=== PATIENT | female | born 1985 | race Hispanic/Latino ===

== ENCOUNTER 2023-07-11 03:01 | Emergency (ER) | payer OTHER, SELFPAY ==
--- OUTSIDE RECORDS SUMMARY | 2023-07-11 03:06 | XMS REPORT | Continuity of Care Document ---
Author Name Unknown Address [address] [facility] [address] [place] [address] [facility] thconnect Address [address] [facility] [address] [place] [address] Care Team Providers Care Strategic Account Director Name Role Phone Jonathan Drew Primary Care Physician [phone] Lina Chávez Attending Clinician [phone] Doctor Unassigned, [place] Attending Clinician U Lelia Diego MD Attending Clinician [phone] [facility], [facility] Attending Clinician Un available Stefano Kinsey MD Attending Clinician [phone] Jonathan Drew Attending Clinician [phone] JONATHAN SCHWAB Attending Clinician Unavailab KELLY Pisano Attending Clinician Unavailabl e Martin, [facility] Attending Clinician Unavailable Payers Payer Name Policy Type Policy Number Effective Date Expirati on Date Source Problems Condition Name Condition Details Condition Category Status Onset Date Resolution Date Last Treatment Date Treating Clinician Comments Source 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 HPV-, patient sent for colposcop y. [facility] Screening examinatio n for STD (sexually transmitte d disease) Screening examinatio n for STD (sexually transmitte d disease) Disease Active 2019-03 00:00: 00 [facility] Pain pelvic Pain pelvic Disease Active 2019-03 00:00: 00 [facility] History of vaginal surgery History of vaginal surgery Disease Active 2019-03 00:00: 00 [facility] BMI 29.0-29.9, adult BMI 29.0-29.9, adult Disease Active 2019-03 00:00: 00 [facility] No known active problems No known active problems Disease [facility] Allergies, Adverse Reactions, Alerts Allergy Name Allergy Type Status Severity Reaction(s) Onset Date Inactive Date Treating Clinician Comments Source NO KNOWN ALLERGIE S Drug Class Active [facility] Social History Social Habit Start Date Stop Date Quantity Comments Source Exposure to SARS-CoV-2 (event) Not sure [facility] Alcohol intake 2020-01-30 00:00:00 2020-01-30 00:00:00 Current drinker of alcohol (finding) [facility] History SDOH Alcohol Frequency 2019-12-27 00:00:00 2019-12-27 00:00:00 2 [facility] History SDOH Alcohol Std Drinks 2019-12-27 00:00:00 2019-12-27 00:00:00 99 [facility] History SDOH Alcohol Binge 2019-12-27 00:00:00 2019-12-27 00:00:00 99 [facility] Alcohol Comment 2019-12-27 00:00:00 2019-12-27 00:00:00 socially [facility] Tobacco use and exposure 2017-10-14 00:00:00 2017-10-14 00:00:00 Never used [facility] Sex Assigned At 1985 00:00:00 1985 00:00:00 [facility] Smoking Status Start Date Stop Date Source Never smoker [facility] Medications Ordered Medication Name Filled Medication Name Start Date Stop Date Current Medication? Ordering Clinician Indication Dosage Frequency Signature (SIG) Comments Components Source TAKE 1 TABLET DAILY. 2021-03 1- 00:00: 00 No Dose Unknown - 00:00: 00 No Dose Unknown 06-19 00:00: 00 No Dose Unknown 06-19 00:00: 00 No Dose Unknown 06-19 00:00: 00 No Dose Unknown 06-19 00:00: 00 No Dose Unknown 06-19 00:00: 00 No propranolol 10 mg tablet 04-11 00:00: 00 No 1mg Dose Unknown 04-11 00:00: 00 No propranolol 10 mg tablet 04-11 00:00: 00 No 1mg Dose Unknown 04-11 00:00: 00 No levonorgest rel-ethin estradiol (NORDETTE, 28, ORAL) 2019-03 13:43: 57 Yes 1{tbl} Take 1 tablet by mouth. [facility] levonorgest rel-ethin estradiol (NORDETTE, 28, ORAL) 2019-03 08:43: 57 Yes 1{tbl} Take 1 tablet by mouth. [facility] levonorgest rel-ethin estradiol (NORDETTE, 28, ORAL) 10-14 19:55: 05 Yes 1{tbl} Take 1 tablet by mouth. [facility] Vital Signs Vital Name Observation Time Observation Value Comments S ource Systolic blood pressure 2020-01-30 15:18:00 110 mm[Hg] [facility] Diastolic blood pressure 2020-01-30 15:18:00 70 mm[Hg] [facility] Heart rate 2020-01-30 15:18:00 85 /min [facility] Body temperature 2020-01-30 15:18:00 37.06 Karolina [facility] Respiratory rate 2020-01-30 15:18:00 18 /min [facility] Body height 2020-01-30 15:18:00 152.4 cm [facility] Body weight 2020-01-30 15:18:00 67.903 kg [facility] BMI 2020-01-30 15:18:00 29.24 kg/m2 [facility] Systolic blood pressure 2019-12-27 13:24:00 114 mm[Hg] [facility] Diastolic blood pressure 2019-12-27 13:24:00 58 mm[Hg] [facility] Heart rate 2019-12-27 13:24:00 75 /min [facility] 2019-12-27 13:24:00 36.5 Karolina [facility] Respiratory rate 2019-12-27 13:24:00 16 /min [facility] Body height 2019-12-27 13:24:00 152.4 cm [facility] Body weight 2019-12-27 13:24:00 68.357 kg [facility] BMI 2019-12-27 13:24:00 29.43 kg/m2 [facility] BP Systolic 2022-01-19 16:56:00 117 mm[Hg] BP Diastolic 2022-01-19 16:56:00 76 mm[Hg] Weight Measured 2022-01-19 16:56:00 146.80 pounds Height Measured 2022-01-19 16:56:00 60.00 inches Body Temperature 2022-01-19 16:56:00 98.00 degrees Heart Rate 2022-01-19 16:56:00 78.00 /min Respiratory Rate 2022-01-19 16:56:00 18.00 /min BP Systolic 2021-12-31 16:44:00 103 mm[Hg] BP Diastolic 2021-12-31 16:44:00 70 mm[Hg] Weight Measured 2021-12-31 16:44:00 148.00 pounds Height Measured 2021-12-31 16:44:00 60.00 inches Body Temperature 2021-12-31 16:44:00 98.30 degrees Heart Rate 2021-12-31 16:44:00 60.00 /min Respiratory Rate 2021-12-31 16:44:00 18.00 /min BP Systolic 2021-06-19 16:09:00 BP Diastolic 2021-06-19 16:09:00 Weight Measured 2021-06-19 16:09:00 150.00 pounds Height Measured 2021-06-19 16:09:00 60.00 inches Body Temperature 2021-06-19 16:09:00 Heart Rate 2021-06-19 16:09:00 Respiratory Rate 2021-06-19 16:09:00 BP Systolic 2021-04-21 16:39:00 111 mm[Hg] BP Diastolic 2021-04-21 16:39:00 62 mm[Hg] Weight Measured 2021-04-21 16:39:00 150.40 pounds Height Measured 2021-04-21 16:39:00 60.00 inches Body Temperature 2021-04-21 16:39:00 98.30 degrees Heart Rate 2021-04-21 16:39:00 76.00 /min Respiratory Rate 2021-04-21 16:39:00 BP Systolic 2021-04-11 17:51:00 100 mm[Hg] BP Diastolic 2021-04-11 17:51:00 63 mm[Hg] Weight Measured 2021-04-11 17:51:00 147.80 pounds Height Measured 2021-04-11 17:51:00 60.00 inches Body Temperature 2021-04-11 17:51:00 98.30 degrees Heart Rate 2021-04-11 17:51:00 64.00 /min Respiratory Rate 2021-04-11 17:51:00 17.00 /min BP Systolic 2021-04-07 17:07:00 117 mm[Hg] BP Diastolic 2021-04-07 17:07:00 70 mm[Hg] Weight Measured 2021-04-07 17:07:00 151.20 pounds Height Measured 2021-04-07 17:07:00 60.00 inches Body Temperature 2021-04-07 17:07:00 98.10 degrees Heart Rate 2021-04-07 17:07:00 71.00 /min Respiratory Rate 2021-04-07 17:07:00 16.00 /min Procedures Procedure Date / Time Performed Performing Clinician Source BCCS-RELATED DOCUMENTATION 2020-02-19 06:01:00 Doctor Unassigned, [place] [facility] SURGICAL PATHOLOGY EXAM 2020-01-30 17:02:00 Felisa Woods [facility] POCT TEST 2020-01-30 15:21:00 Stefano Kinsey [facility] BCCS-RELATED DOCUMENTATION 2020-01-26 06:01:00 Doctor Unassigned, [place] [facility] AUTHORIZATION FOR RELEASE OF PHI 2020-01-04 05:01:00 Doctor Unassigned, [place] [facility] NOTICE OF PRIVACY PRACTICES 2019-12-27 13:13:23 Doctor Unassigned, [place] [facility] POCT TEST 2019-12-27 00:00:00 Enrique Schwab [facility] Plan of Care Planned Activity Planned Date Details Comments Source Goal Plan of Care Note [code = 72102-3] Goal Plan of Care Note [code = 44644-7] Goal Plan of Care Note [code = 59655-4] Goal Plan of Care Note [code = 04480-7] Goal Plan of Care Note [code = 64534-0] Goal Plan of Care Note [code = 69105-8] Goal Plan of Care Note [code = 07296-3] Goal Plan of Care Note [code = 02342-8] Goal Plan of Care Note [code = 31153-7] Goal Plan of Care Note [code = 35746-1] Goal Plan of Care Note [code = 81567-0] Goal Plan of Care Note [code = 39196-6] Goal Plan of Care Note [code = 56727-0] Goal Plan of Care Note [code = 62170-9] Goal Plan of Care Note [code = 07203-4] Goal Plan of Care Note [code = 56692-3] Goal Plan of Care Note [code = 21747-4] Goal Plan of Care Note [code = 02616-0] Goal Plan of Care Note [code = 73816-4] Goal Plan of Care Note [code = 38862-9] Goal Plan of Care Note [code = 74517-6] Goal Plan of Care Note [code = 31226-2] Goal Plan of Care Note [code = 14683-2] Goal Plan of Care Note [code = 16064-7] Goal Plan of Care Note [code = 58394-1] Goal Plan of Care Note [code = 75739-3] Goal Plan of Care Note [code = 03076-4] Encounters Start Date/Time End Date/Time Encounter Type Admission Type Attending Clinicians Care Facility Care Department Encounter ID Source 2023-05-26 14:38:53 2023-05-26 14:38:53 Outpatient [facility] [id number] Bartolo Guzman 2023-05-11 15:44:41 2023-05-11 15:44:41 Outpatient [facility] [id number] Bartolo Guzman 2023-03-30 16:43:32 2023-03-30 16:43:32 Outpatient [facility] [id number] Bartolo Guzman 2023-03-23 17:06:11 2023-03-23 17:06:11 Outpatient [facility] [id number] Bartolo Guzman 2022-07-16 17:02:32 2022-07-16 17:02:32 Outpatient [facility] SFA [id number] Bartolo Guzman 2022-01-23 16:59:28 2022-01-23 16:59:28 Outpatient [facility] [id number] Bartolo Guzman 2022-01-21 16:48:05 2022-01-21 16:48:05 Outpatient [facility] S[facility] [id number] Bartolo Guzman 2022-01-19 16:48:42 2022-01-19 16:48:42 Outpatient [facility] SFA [id number] Bartolo Guzman 2022-01-19 00:00:00 2022-01-19 00:00:00 Outpatient Visit [id number] 2021-12-31 16:35:38 2021-12-31 16:35:38 Outpatient [facility] SFA [id number] Bartolo Guzman 2021-12-31 00:00:00 2021-12-31 00:00:00 Outpatient Visit [id number] 2021-01-09 00:00:00 2021-01-09 00:00:00 [facility] [id number] 350.1.13.10 4.2.7.2.686 [id number] [facility] 2020-02-19 00:00:00 2020-02-19 00:00:00 Orders Only Doctor Unassigned, [place] [facility] 1.2.114 350.1.13.10 4.2.7.2.686 [id number] [facility] 2020-02-19 00:00:00 2020-02-19 00:00:00 Case Management Lina Perez [facility] 1..114 350.1.13.10 4.2.7.2.686 [id number] [facility] 2020-02-05 00:00:00 2020-02-05 00:00:00 Telephone Lelia Woods [facility] 1..114 350.1.13.10 4.2.7.2.686 [id number] [facility] 2020-01-30 09:00:47 2020-01-30 10:52:56 Office Visit [facility]Colpo/L eep, [facility] Stefano Kinsey [facility] 1..114 350.1.13.10 4.2.7.2.686 [id number] [facility] 2020-01-30 08:30:00 2020-01-30 08:30:00 Outpatient R [facility] [id number] [facility] 2020-01-30 00:00:00 2020-01-30 00:00:00 Letter (Out) Stefano Kinsey [facility] 1.2.114 350.1.13.10 4.2.7.2.686 [id number] [facility] 2020-01-26 16:00:00 2020-01-26 16:00:00 Outpatient R [facility] [id number] [facility] 2020-01-26 00:00:00 2020-01-26 00:00:00 Telephone Jonathan Schwab R [facility] DISC [facility] 1.2840.114 350.1.13.10 4.2.7.2.686 [id number] [facility] 2020-01-26 00:00:00 2020-01-26 00:00:00 Orders Only Doctor Unassigned, [place] [facility] 1.2840.114 350.1.13.10 4.2.7.2.686 [id number] [facility] 2020-01-23 00:00:00 2020-01-23 00:00:00 Telephone Jonathan Schwab [facility] DISC [facility] 1.0.114 350.1.13.10 4.2.7.2.686 [id number] [facility] 2020-01-10 14:30:00 2020-01-10 14:30:00 Outpatient R [facility] [id number] [facility] 2020-01-10 00:00:00 2020-01-10 00:00:00 Telephone Jonathan Schwab [facility] DIS[facility] 1..114 350.1.13.10 4.2.7.2.686 [id number] [facility] 2020-01-08 15:15:00 2020-01-08 15:15:00 Outpatient R JONATHAN SCHWAB [facility] [id number] [facility] 2020-01-04 15:30:00 2020-01-04 15:30:00 Outpatient R KELLY KELLY [facility] [id number] [facility] 2020-01-04 00:00:00 2020-01-04 00:00:00 Orders Only Doctor Unassigned, [place] [facility] 1.20.114 350.1.13.10 4.2.7.2.686 [id number] [facility] 2019-12-29 15:15:00 2019-12-29 15:15:00 Outpatient R JONATHAN SCHWAB [facility] [id number] [facility] 2019-12-29 13:54:22 2019-12-29 14:04:56 Mixing Technician Visit Lab, [facility] Jonathan Schwab [facility] DISC [facility] 1.2.840.114 350.1.13.10 4.2.7.2.686 [id number] [facility] 2019-12-28 00:00:00 2019-12-28 00:00:00 Telephone Jonathan Schwab [facility] DISC [facility] 1.2.840.114 350.1.13.10 4.2.7.2.686 [id number] [facility] 2019-12-27 08:17:10 2019-12-27 09:14:14 Office Visit Jonathan Schwab [facility] DISC [facility] 1.20.114 350.1.13.10 4.2.7.2.686 [id number] [facility] 2019-12-27 07:45:00 2019-12-27 07:45:00 Outpatient R JONATHAN SCHWAB [facility] [id number] [facility] 2019-12-27 00:00:00 2019-12-27 00:00:00 Orders Only Doctor Unassigned, [place] [facility] 1.2840.114 350.1.13.10 4.2.7.2.686 [id number] [facility] 2019-12-27 00:00:00 2019-12-27 00:00:[address] [facility]ILD [facility] 1.2.840.114 350.1.13.10 4.2.7.2.686 [id number] [facility] Results Test Description Test Time Test Comments Results Result Co mments Source LIPID [id number] 00:50:29* Test Item Value Reference Range Interpretation Comme nts CHOLESTEROL (test code = 2210) 172 MG/DL <200 TRIGLYCERIDES (test code = 2232) 60 MG/DL <150 HDL CHOLESTEROL (test code = 2220) 52 MG/DL >39 CALC LDL CHOL (test code = 2237) 105 MG/DL <100 H NOTE: CALCULATED LDL IS BASED ON KONRAD-ARAUJO METHOD WHICHINCLUDES ADJUSTABLE TRIGLYCERIDE:VLDL CHOLESTEROL RATIO.THIS FACTOR VARIES BY MEASURED TRIGLYCERIDE AND NON-HDLCHOLESTEROL CONCENTRATIONS WITH INCREASED CALCULATED LDL SEENIN HIGHER TRIGLYCERIDE OR LOWER NON-HDL SPECIMENS. FOR MOREINFORMATION, SEE CLIENT ANNOUNCEMENT AT [email or web address] RISK RATIO LDL/HDL (test code = 2238) 2.02 RATIO <3.22 COMPREHENSIVE METABOLIC [id number] 00:00:00* Test Item Value Reference Range Interpretation Comme nts GLUCOSE (test code = 2217) 90 MG/DL BUN (test code = 2208) 12 MG/DL CREATININE (test code = 2214) 0.63 MG/DL eGFR (2020 CKD-EPI) (test code = 98154) 118 ML/MIN/1.73 CALC BUN/CREAT (test code = 2235) 19 RATIO SODIUM (test code = 2231) 139 MEQ/L POTASSIUM (test code = 2228) 4.2 MEQ/L CHLORIDE (test code = 2215) 101 MEQ/L CARBON DIOXIDE (test code = 2206) 19 MEQ/L CALCIUM (test code = 2209) 9.5 MG/DL PROTEIN, TOTAL (test code = 2229) 7.3 G/DL ALBUMIN (test code = 2201) 4.7 G/DL CALC GLOBULIN (test code = 2240) 2.6 G/DL CALC A/G RATIO (test code = 2234) 1.8 RATIO BILIRUBIN, TOTAL (test code = 2207) 0.3 MG/DL ALKALINE PHOSPHATASE (test code = 2204) 105 U/L AST (test code = 2218) 16 U/L ALT (test code = 2219) 12 U/L COMPREHENSIVE METABOLIC [id number] 00:00:00* Test Item Value Reference Range Interpretation Comme nts GLUCOSE (test code = 2217) 90 MG/DL BUN (test code = 2208) 12 MG/DL CREATININE (test code = 2214) 0.63 MG/DL eGFR (2020 CKD-EPI) (test code = 49543) 118 ML/MIN/1.73 CALC BUN/CREAT (test code = 2235) 19 RATIO SODIUM (test code = 2231) 139 MEQ/L POTASSIUM (test code = 2228) 4.2 MEQ/L CHLORIDE (test code = 2215) 101 MEQ/L CARBON DIOXIDE (test code = 2206) 19 MEQ/L CALCIUM (test code = 2209) 9.5 MG/DL PROTEIN, TOTAL (test code = 2229) 7.3 G/DL ALBUMIN (test code = 2201) 4.7 G/DL CALC GLOBULIN (test code = 2240) 2.6 G/DL CALC A/G RATIO (test code = 2234) 1.8 RATIO BILIRUBIN, TOTAL (test code = 2207) 0.3 MG/DL ALKALINE PHOSPHATASE (test code = 2204) 105 U/L AST (test code = 2218) 16 U/L ALT (test code = 2219) 12 U/L LIPID [id number] 00:00:00* Test Item Value Reference Range Interpretation Comme nts CHOLESTEROL (test code = 2210) 172 MG/DL TRIGLYCERIDES (test code = 2232) 60 MG/DL HDL CHOLESTEROL (test code = 2220) 52 MG/DL CALC LDL CHOL (test code = 2237) 105 MG/DL RISK RATIO LDL/HDL (test cod e = 2238) 2.02 RATIO LIPID [id number] 00:00:00* Test Item Value Reference Range Interpretation Comme nts CHOLESTEROL (test code = 2210) 172 MG/DL TRIGLYCERIDES (test code = 2232) 60 MG/DL HDL CHOLESTEROL (test code = 2220) 52 MG/DL CALC LDL CHOL (test code = 2237) 105 MG/DL RISK RATIO LDL/HDL (test cod e = 2238) 2.02 RATIO COMPREHENSIVE METABOLIC [id number] 00:00:00* Test Item Value Reference Range Interpretation Comme nts GLUCOSE (test code = 2217) 90 MG/DL BUN (test code = 2208) 12 MG/DL CREATININE (test code = 2214) 0.63 MG/DL eGFR (2020 CKD-EPI) (test code = 08155) 118 ML/MIN/1.73 CALC BUN/CREAT (test code = 2235) 19 RATIO SODIUM (test code = 2231) 139 MEQ/L POTASSIUM (test code = 2228) 4.2 MEQ/L CHLORIDE (test code = 2215) 101 MEQ/L CARBON DIOXIDE (test code = 2206) 19 MEQ/L CALCIUM (test code = 2209) 9.5 MG/DL PROTEIN, TOTAL (test code = 2229) 7.3 G/DL ALBUMIN (test code = 2201) 4.7 G/DL CALC GLOBULIN (test code = 2240) 2.6 G/DL CALC A/G RATIO (test code = 2234) 1.8 RATIO BILIRUBIN, TOTAL (test code = 2207) 0.3 MG/DL ALKALINE PHOSPHATASE (test code = 2204) 105 U/L AST (test code = 2218) 16 U/L ALT (test code = 2219) 12 U/L COMPREHENSIVE METABOLIC [id number] 00:00:00* Test Item Value Reference Range Interpretation Comme nts GLUCOSE (test code = 2217) 90 MG/DL BUN (test code = 2208) 12 MG/DL CREATININE (test code = 2214) 0.63 MG/DL eGFR (2020 CKD-EPI) (test code = 43501) 118 ML/MIN/1.73 CALC BUN/CREAT (test code = 2235) 19 RATIO SODIUM (test code = 2231) 139 MEQ/L POTASSIUM (test code = 2228) 4.2 MEQ/L CHLORIDE (test code = 2215) 101 MEQ/L CARBON DIOXIDE (test code = 2206) 19 MEQ/L CALCIUM (test code = 2209) 9.5 MG/DL PROTEIN, TOTAL (test code = 2229) 7.3 G/DL ALBUMIN (test code = 2201) 4.7 G/DL CALC GLOBULIN (test code = 2240) 2.6 G/DL CALC A/G RATIO (test code = 2234) 1.8 RATIO BILIRUBIN, TOTAL (test code = 2207) 0.3 MG/DL ALKALINE PHOSPHATASE (test code = 2204) 105 U/L AST (test code = 2218) 16 U/L ALT (test code = 2219) 12 U/L LIPID [id number] 00:00:00* Test Item Value Reference Range Interpretation Comme nts CHOLESTEROL (test code = 2210) 172 MG/DL TRIGLYCERIDES (test code = 2232) 60 MG/DL HDL CHOLESTEROL (test code = 2220) 52 MG/DL CALC LDL CHOL (test code = 2237) 105 MG/DL RISK RATIO LDL/HDL (test cod e = 2238) 2.02 RATIO LIPID [id number] 00:00:00* Test Item Value Reference Range Interpretation Comme nts CHOLESTEROL (test code = 2210) 172 MG/DL TRIGLYCERIDES (test code = 2232) 60 MG/DL HDL CHOLESTEROL (test code = 2220) 52 MG/DL CALC LDL CHOL (test code = 2237) 105 MG/DL RISK RATIO LDL/HDL (test cod e = 2238) 2.02 RATIO TSH, THIRD [id number] 09:25:08* Test Item Value Reference Range Interpretation Comme nts TSH, THIRD GENERATION (test code = 2821) 1.050 UIU/ML 0.400-4.100 UNLESS OTHERWISE INDICATED, ALL TESTING PERFORMED [facility] [employer] [address] [place] [address] TOOL TROUBLE SHOOTER: MAYCO BOYLE M.D. CLIA NUMBER [id number] [facility] [place] [id number] HIV 1/2 4TH GEN, RFLX [id number] 06:03:16* Test Item Value Reference Range Interpretation Comme [facility] HIV 1/2 4TH GEN, RFLX CONF ( test code = 3514) NON-REACTIVE NON-REACTIVE HEPATITIS PANEL, [id number] 06:03:16* Test Item Value Reference Range Interpretation Comme nts HEPATITIS A IgM (test code = 09091) NON-REACTIVE NON-REACTIVE HEPATITIS B CORE IgM (test code = 4644) NON-REACTIVE NON-REACTIVE HEPATITIS B SURF AG (test code = 2739) NON-REACTIVE NON-REACTIVE HEPATITIS C ANTIBODY (test code = 4675) NON-REACTIVE NON-REACTIVE INTERPRETATION HEPATITIS A: (test code = 2552) (NOTE) Hepatitis A serology shows no evidence of acute hepatitis A. INTERPRETATION HEPATITIS B: (test code = 83528) (NOTE) Hepatitis B serology shows no evidence of acute hepatitis B andno indication of exposure to hepatitis B virus in the previous mahin eight months. INTERPRETATION HEPATITIS C: (test code = 75596) (NOTE) Hepatitis C serology shows no evidence of exposure to hepatitisC virus at this time. It can take up to 12 months after exposure tothe hepatitis C virus for antibodies to become detectable in the blood in certain patients. HEMOGLOBIN [id number] 04:54:36* Test Item Value Reference Range Interpretation Comme nts HEMOGLOBIN A1c (test code = 52354) 5.5 % 4.2-5.6 CBC W/AUTO DIFF WITH [id number] 04:07:27* Test Item Value Reference Range Interpretation Comme nts WBC (test code = 1001) 5.9 K/UL 3.5-11.0 RBC (test code = 1002) 4.54 M/UL 3.80-5.40 HEMOGLOBIN (test code = 1003) 13.7 G/DL 11.5-15.5 HEMATOCRIT (test code = 1004) 40.6 % 34.0-45.0 MCV (test code = 1005) 89.4 fL 80.0-99.0 MCH (test code = 1006) 30.2 PG 25.0-33.0 MCHC (test code = 1007) 33.7 G/DL 31.0-36.0 RDW (test code = 1038) 11.9 % 11.5-15.0 NEUTROPHILS (test code = 1008) 55.5 % LYMPHOCYTES (test code = 1010) 33.7 % MONOCYTES (test code = 1011) 5.4 % EOSINOPHILS (test code = 1012) 4.7 % BASOPHILS (test code = 1013) 0.5 % IMMATURE GRANYLOCYTES (test code = 1036) 0.2 % NUCLEATED RBCS (test code = 1065) 0.0 /100 WBC'S See_Comment [Automated messa ge] The system which generated this result transmitted reference range: 0.0. The reference range was not used to interpret this result as normal/abnormal. PLATELET COUNT (test code = 1015) 243 K/UL 130-400 ABSOLUTE NEUTROPHILS (test code = 1066) 3.29 K/UL 1.50-7.50 ABSOLUTE LYMPHOCYTES (test code = 1067) 2.00 K/UL 1.00-4.00 ABSOLUTE MONOCYTES (test code = 1068) 0.32 K/UL 0.20-1.00 ABSOLUTE EOSINOPHILS (test code = 1040) 0.28 K/UL 0.00-0.50 ABSOLUTE BASOPHILS (test code = 1069) 0.03 K/UL 0.00-0.20 ABS IMMATURE GRANULOCYTES (test code = 1020) 0.01 K/UL 0.00-0.10 ABS NUCLEATED RBCS (test code = 97290) 0.00 K/UL 0.00-0.11 HIV AB/AG COMBO RFLX [id number] 00:00:00* Test Item Value Reference Range Interpretation Comme nts HIV 1/2 4TH GEN, RFLX CONF ( test code = 3514) NON-REACTIVE HIV AB/AG COMBO RFLX [id number] 00:00:00* Test Item Value Reference Range Interpretation Comme nts HIV 1/2 4TH GEN, RFLX CONF ( test code = 3514) NON-REACTIVE HEMOGLOBIN [id number] 00:00:00* Test Item Value Reference Range Interpretation Comme nts HEMOGLOBIN A1c (test code = 58619) 5.5 % HEMOGLOBIN [id number] 00:00:00* Test Item Value Reference Range Interpretation Comme nts HEMOGLOBIN A1c (test code = 05822) 5.5 % HEMOGLOBIN [id number] 00:00:00* Test Item Value Reference Range Interpretation Comme nts HEMOGLOBIN A1c (test code = 99676) 5.5 % ACUTE HEPATITIS [id number] 00:00:00* Test Item Value Reference Range Interpretation Comme nts HEPATITIS A IgM (test code = 21501) NON-REACTIVE HEPATITIS B CORE IgM (test c ode = 4644) NON-REACTIVE HEPATITIS B SURF AG (test co de = 2739) NON-REACTIVE HEPATITIS C ANTIBODY (test c ode = 4675) NON-REACTIVE INTERPRETATION HEPATITIS A: (test code = 2552) (NOTE) INTERPRETATION HEPATITIS B: (test code = 61879) (NOTE) INTERPRETATION HEPATITIS C: (test code = 11188) (NOTE) ACUTE HEPATITIS [id number] 00:00:00* Test Item Value Reference Range Interpretation Comme nts HEPATITIS A IgM (test code = 31609) NON-REACTIVE HEPATITIS B CORE IgM (test c ode = 4644) NON-REACTIVE HEPATITIS B SURF AG (test co de = 2739) NON-REACTIVE HEPATITIS C ANTIBODY (test c ode = 4675) NON-REACTIVE INTERPRETATION HEPATITIS A: (test code = 2552) (NOTE) INTERPRETATION HEPATITIS B: (test code = 36886) (NOTE) INTERPRETATION HEPATITIS C: (test code = 98120) (NOTE) CBC W/AUTO [id number] 00:00:00* Test Item Value Reference Range Interpretation Comme nts WBC (test code = 1001) 5.9 K/UL RBC (test code = 1002) 4.54 M/UL HEMOGLOBIN (test code = 1003) 13.7 G/DL HEMATOCRIT (test code = 1004) 40.6 % MCV (test code = 1005) 89.4 fL MCH (test code = 1006) 30.2 PG MCHC (test code = 1007) 33.7 G/DL RDW (test code = 1038) 11.9 % NEUTROPHILS (test code = 1008) 55.5 % LYMPHOCYTES (test code = 1010) 33.7 % MONOCYTES (test code = 1011) 5.4 % EOSINOPHILS (test code = 1012) 4.7 % BASOPHILS (test code = 1013) 0.5 % IMMATURE GRANYLOCYTES (test code = 1036) 0.2 % NUCLEATED RBCS (test code = 1065) 0.0 /100WBC'S PLATELET COUNT (test code = 1015) 243 K/UL ABSOLUTE NEUTROPHILS (test c ode = 1066) 3.29 K/UL ABSOLUTE LYMPHOCYTES (test c ode = 1067) 2.00 K/UL ABSOLUTE MONOCYTES (test cod e = 1068) 0.32 K/UL ABSOLUTE EOSINOPHILS (test c ode = 1040) 0.28 K/UL ABSOLUTE BASOPHILS (test cod e = 1069) 0.03 K/UL ABS IMMATURE GRANULOCYTES (t est code = 1020) 0.01 K/UL ABS NUCLEATED RBCS (test cod e = 12684) 0.00 K/UL CBC W/AUTO [id number] 00:00:00* Test Item Value Reference Range Interpretation Comme nts WBC (test code = 1001) 5.9 K/UL RBC (test code = 1002) 4.54 M/UL HEMOGLOBIN (test code = 1003) 13.7 G/DL HEMATOCRIT (test code = 1004) 40.6 % MCV (test code = 1005) 89.4 fL MCH (test code = 1006) 30.2 PG MCHC (test code = 1007) 33.7 G/DL RDW (test code = 1038) 11.9 % NEUTROPHILS (test code = 1008) 55.5 % LYMPHOCYTES (test code = 1010) 33.7 % MONOCYTES (test code = 1011) 5.4 % EOSINOPHILS (test code = 1012) 4.7 % BASOPHILS (test code = 1013) 0.5 % IMMATURE GRANYLOCYTES (test code = 1036) 0.2 % NUCLEATED RBCS (test code = 1065) 0.0 /100WBC'S PLATELET COUNT (test code = 1015) 243 K/UL ABSOLUTE NEUTROPHILS (test c ode = 1066) 3.29 K/UL ABSOLUTE LYMPHOCYTES (test c ode = 1067) 2.00 K/UL ABSOLUTE MONOCYTES (test cod e = 1068) 0.32 K/UL ABSOLUTE EOSINOPHILS (test c ode = 1040) 0.28 K/UL ABSOLUTE BASOPHILS (test cod e = 1069) 0.03 K/UL ABS IMMATURE GRANULOCYTES (t est code = 1020) 0.01 K/UL ABS NUCLEATED RBCS (test cod e = 78649) 0.00 K/UL CBC W/AUTO [id number] 00:00:00* Test Item Value Reference Range Interpretation Comme nts WBC (test code = 1001) 5.9 K/UL RBC (test code = 1002) 4.54 M/UL HEMOGLOBIN (test code = 1003) 13.7 G/DL HEMATOCRIT (test code = 1004) 40.6 % MCV (test code = 1005) 89.4 fL MCH (test code = 1006) 30.2 PG MCHC (test code = 1007) 33.7 G/DL RDW (test code = 1038) 11.9 % NEUTROPHILS (test code = 1008) 55.5 % LYMPHOCYTES (test code = 1010) 33.7 % MONOCYTES (test code = 1011) 5.4 % EOSINOPHILS (test code = 1012) 4.7 % BASOPHILS (test code = 1013) 0.5 % IMMATURE GRANYLOCYTES (test code = 1036) 0.2 % NUCLEATED RBCS (test code = 1065) 0.0 /100WBC'S PLATELET COUNT (test code = 1015) 243 K/UL ABSOLUTE NEUTROPHILS (test c ode = 1066) 3.29 K/UL ABSOLUTE LYMPHOCYTES (test c ode = 1067) 2.00 K/UL ABSOLUTE MONOCYTES (test cod e = 1068) 0.32 K/UL ABSOLUTE EOSINOPHILS (test c ode = 1040) 0.28 K/UL ABSOLUTE BASOPHILS (test cod e = 1069) 0.03 K/UL ABS IMMATURE GRANULOCYTES (t est code = 1020) 0.01 K/UL ABS NUCLEATED RBCS (test cod e = 50172) 0.00 K/UL TSH, THIRD GENERATION [ADDED]2021-04-09 00:00:00* Test Item Value Reference Range Interpretation Comme nts TSH, THIRD GENERATION (test code = 2821) 1.050 UIU/ML TSH, THIRD GENERATION [ADDED]2021-04-09 00:00:00* Test Item Value Reference Range Interpretation Comme nts TSH, THIRD GENERATION (test code = 2821) 1.050 UIU/ML TSH, THIRD GENERATION [ADDED]2021-04-09 00:00:00* Test Item Value Reference Range Interpretation Comme nts TSH, THIRD GENERATION (test code = 2821) 1.050 UIU/ML HIV AB/AG COMBO RFLX [id number] 00:00:00* Test Item Value Reference Range Interpretation Comme nts HIV 1/2 4TH GEN, RFLX CONF ( test code = 3514) NON-REACTIVE HIV AB/AG COMBO RFLX [id number] 00:00:00* Test Item Value Reference Range Interpretation Comme nts HIV 1/2 4TH GEN, RFLX CONF ( test code = 3514) NON-REACTIVE HEMOGLOBIN [id number] 00:00:00* Test Item Value Reference Range Interpretation Comme nts HEMOGLOBIN A1c (test code = 09670) 5.5 % HEMOGLOBIN [id number] 00:00:00* Test Item Value Reference Range Interpretation Comme nts HEMOGLOBIN A1c (test code = 12919) 5.5 % HEMOGLOBIN [id number] 00:00:00* Test Item Value Reference Range Interpretation Comme nts HEMOGLOBIN A1c (test code = 43053) 5.5 % ACUTE HEPATITIS [id number] 00:00:00* Test Item Value Reference Range Interpretation Comme nts HEPATITIS A IgM (test code = 14674) NON-REACTIVE HEPATITIS B CORE IgM (test c ode = 4644) NON-REACTIVE HEPATITIS B SURF AG (test co de = 2739) NON-REACTIVE HEPATITIS C ANTIBODY (test c ode = 4675) NON-REACTIVE INTERPRETATION HEPATITIS A: (test code = 2552) (NOTE) INTERPRETATION HEPATITIS B: (test code = 19572) (NOTE) INTERPRETATION HEPATITIS C: (test code = 72553) (NOTE) ACUTE HEPATITIS [id number] 00:00:00* Test Item Value Reference Range Interpretation Comme nts HEPATITIS A IgM (test code = 64574) NON-REACTIVE HEPATITIS B CORE IgM (test c ode = 4644) NON-REACTIVE HEPATITIS B SURF AG (test co de = 2739) NON-REACTIVE HEPATITIS C ANTIBODY (test c ode = 4675) NON-REACTIVE INTERPRETATION HEPATITIS A: (test code = 2552) (NOTE) INTERPRETATION HEPATITIS B: (test code = 04282) (NOTE) INTERPRETATION HEPATITIS C: (test code = 53191) (NOTE) CBC W/AUTO [id number] 00:00:00* Test Item Value Reference Range Interpretation Comme nts WBC (test code = 1001) 5.9 K/UL RBC (test code = 1002) 4.54 M/UL HEMOGLOBIN (test code = 1003) 13.7 G/DL HEMATOCRIT (test code = 1004) 40.6 % MCV (test code = 1005) 89.4 fL MCH (test code = 1006) 30.2 PG MCHC (test code = 1007) 33.7 G/DL RDW (test code = 1038) 11.9 % NEUTROPHILS (test code = 1008) 55.5 % LYMPHOCYTES (test code = 1010) 33.7 % MONOCYTES (test code = 1011) 5.4 % EOSINOPHILS (test code = 1012) 4.7 % BASOPHILS (test code = 1013) 0.5 % IMMATURE GRANYLOCYTES (test code = 1036) 0.2 % NUCLEATED RBCS (test code = 1065) 0.0 /100WBC'S PLATELET COUNT (test code = 1015) 243 K/UL ABSOLUTE NEUTROPHILS (test c ode = 1066) 3.29 K/UL ABSOLUTE LYMPHOCYTES (test c ode = 1067) 2.00 K/UL ABSOLUTE MONOCYTES (test cod e = 1068) 0.32 K/UL ABSOLUTE EOSINOPHILS (test c ode = 1040) 0.28 K/UL ABSOLUTE BASOPHILS (test cod e = 1069) 0.03 K/UL ABS IMMATURE GRANULOCYTES (t est code = 1020) 0.01 K/UL ABS NUCLEATED RBCS (test cod e = 41434) 0.00 K/UL CBC W/AUTO [id number] 00:00:00* Test Item Value Reference Range Interpretation Comme nts WBC (test code = 1001) 5.9 K/UL RBC (test code = 1002) 4.54 M/UL HEMOGLOBIN (test code = 1003) 13.7 G/DL HEMATOCRIT (test code = 1004) 40.6 % MCV (test code = 1005) 89.4 fL MCH (test code = 1006) 30.2 PG MCHC (test code = 1007) 33.7 G/DL RDW (test code = 1038) 11.9 % NEUTROPHILS (test code = 1008) 55.5 % LYMPHOCYTES (test code = 1010) 33.7 % MONOCYTES (test code = 1011) 5.4 % EOSINOPHILS (test code = 1012) 4.7 % BASOPHILS (test code = 1013) 0.5 % IMMATURE GRANYLOCYTES (test code = 1036) 0.2 % NUCLEATED RBCS (test code = 1065) 0.0 /100WBC'S PLATELET COUNT (test code = 1015) 243 K/UL ABSOLUTE NEUTROPHILS (test c ode = 1066) 3.29 K/UL ABSOLUTE LYMPHOCYTES (test c ode = 1067) 2.00 K/UL ABSOLUTE MONOCYTES (test cod e = 1068) 0.32 K/UL ABSOLUTE EOSINOPHILS (test c ode = 1040) 0.28 K/UL ABSOLUTE BASOPHILS (test cod e = 1069) 0.03 K/UL ABS IMMATURE GRANULOCYTES (t est code = 1020) 0.01 K/UL ABS NUCLEATED RBCS (test cod e = 40084) 0.00 K/UL CBC W/AUTO [id number] 00:00:00* Test Item Value Reference Range Interpretation Comme nts WBC (test code = 1001) 5.9 K/UL RBC (test code = 1002) 4.54 M/UL HEMOGLOBIN (test code = 1003) 13.7 G/DL HEMATOCRIT (test code = 1004) 40.6 % MCV (test code = 1005) 89.4 fL MCH (test code = 1006) 30.2 PG MCHC (test code = 1007) 33.7 G/DL RDW (test code = 1038) 11.9 % NEUTROPHILS (test code = 1008) 55.5 % LYMPHOCYTES (test code = 1010) 33.7 % MONOCYTES (test code = 1011) 5.4 % EOSINOPHILS (test code = 1012) 4.7 % BASOPHILS (test code = 1013) 0.5 % IMMATURE GRANYLOCYTES (test code = 1036) 0.2 % NUCLEATED RBCS (test code = 1065) 0.0 /100WBC'S PLATELET COUNT (test code = 1015) 243 K/UL ABSOLUTE NEUTROPHILS (test c ode = 1066) 3.29 K/UL ABSOLUTE LYMPHOCYTES (test c ode = 1067) 2.00 K/UL ABSOLUTE MONOCYTES (test cod e = 1068) 0.32 K/UL ABSOLUTE EOSINOPHILS (test c ode = 1040) 0.28 K/UL ABSOLUTE BASOPHILS (test cod e = 1069) 0.03 K/UL ABS IMMATURE GRANULOCYTES (t est code = 1020) 0.01 K/UL ABS NUCLEATED RBCS (test cod e = 67838) 0.00 K/UL TSH, THIRD GENERATION [ADDED]2021-04-09 00:00:00* Test Item Value Reference Range Interpretation Comme nts TSH, THIRD GENERATION (test code = 2821) 1.050 UIU/ML TSH, THIRD GENERATION [ADDED]2021-04-09 00:00:00* Test Item Value Reference Range Interpretation Comme nts TSH, THIRD GENERATION (test code = 2821) 1.050 UIU/ML TSH, THIRD GENERATION [ADDED]2021-04-09 00:00:00* Test Item Value Reference Range Interpretation Comme nts TSH, THIRD GENERATION (test code = 2821) 1.050 UIU/ML SURGICAL PATHOLOGY [id number] 17:45:00* Test Item Value Reference Range Interpretation Comme nts Case Report (test code = 0616683885) Surgical Pathology ?Case: [id number] ? Authorizing Provider: ?Stefano Kinsey MD ? ? ? Collected: ? 01/30/2020 110 ?Ordering Location: ? ? [facility] ?Received: ?01/30/2020 1351 ? [facility] ?Pathologist: ? Emerson, Radha Nelson, ? MD ? Specimens: ? A) - CERVIX, 12 o'clock ? B) - ENDOCERVICAL, ECC ? Final Diagnosis (test code = 3923104443) [id number] FuZzEwMzNcZnRuYmpcdWMx BDmzhxIrPMket1ZgJ1HeRu AwMFxhbnNpXGRlZmxhbmcx XYVhADN6ehXyFVFwLVonFB EkVKujLz5mzPTylRkbRtIh IPKac6itdaFDstpfyEj5u8 qqHEZhUwP1mKKlGQkdU9mf amLroLVbOXSyXWb8oL93GM YkuV9kvMIkPGhsveTjUDww doGybbPsIgk8BVJcC3noCE LbDELdI7JzCZ5gIKNuHwu5 YSI6OTB5bGmdu4U9fOSguC UdjKsfCiSeErZhKVDFo5Tk TAk9sWhvO4AjAKKbFsL7dD QgUGFyYWdyYXBoIEZvbnQ7 fD26TQngrxJ1aWIiu9Cra1 2ux354lU2gaSWrQVP1UPBf ZICovGPyQQCwJLR6WSFeeH MiV7zwOWgmJF9vrdjrMXQ7 MFxtYXJndDcyMFxtYXJnYj CqcBBwMNCuqKfiCVkew875 FVL6ToNiWH6oL9Cfl4Y4fK 9maXRcZGVmdGFiNzIwXGZv ox2ymNUrXXsau9KoPIS5zg L2wJCrjVQlQDVjNB73Ckoe d7FzBxcgTTT9SSSvhdBwf0 XwURJ2kk7zdTLqkTspwyQz oWCdLSlvP7OoXWEbv656FR 6suBFgoR5sZCNqO6OhGKVb o5T7rdTiMmVqLSEppZH1og F4MHKeHQi4aTJpoyE5csAa fGVtT8dexF2hNXkjIL3bqe bwz7tvUPM8NXzwIHGkxQU0 xyqiZCxpJNDxTaU9opUlkI RfQPZzlAxeJWbkz656DTX5 RjGbDCEmi8IqG4WwfEwmY3 0ndAgcX53sHJOdtNaqvW8v lRsauE1hSdWzOwBnIFdvzT xwbGFpblxmMFxmczIwXHBs YWluXGYwXGZzMjBccGFyXH HmraUfiXsezV2yMqOiTwNu MFxwbGFpblxmMFxmczIwIE EuIENFUlZJWCwgMTIgTydD TT2ZKkesVqiFWIZUVjuyPO ZjKKNwFY7jNe8UVXxeIN3V JSpTHDDXWJUFKINAX4SXQV lOVFJBRVBJVEhFTElBTCBM DBPIJ19gMHPLIkPGAQKFDG MPNJeDHNJKJYBOWJfUQT6T QVZJUlVTIFxwYXJccWxccG twsW0wZnIpKeRmWTymaCFb blxmMFxmczIwICAgICAgIC QKD1TPG6rWTLTQVPLAFK4E RVMgXHBhciAgICAgLSBccG ekkV3aUuMrXmBaVHWNQvYB T3NRMs6NSXtOHxWaZ92EEJ KDU5RKJPmiiJFuhxcyYRgi czIwXHBhclxwYXJccGFyZF xwbGFpblxmMFxmczIwXHBs MMjcLHLjPSRyDmXfIa6aJP 2XT3XTBtRCKFqwK8LJQDUR QUdFOlxwYXJccWxccGxhaW 5cZjBcZnMyMFxwbGFpblxm MFxmczIwICAgICAtIFxwbG FpblxmMVxmczIwIEhVTUFO EZOKEDjXCJ8YPQEDGnHFGH OIE23KBZFCZOIgE7sTEoaI L0orsABptgmiDKnvdjSpZQ BhciAgICAgLSBTVFJJUFMg Y6HyPeUTYIfVXIQPJR5QCG JWSUNBTCBHTEFORFVMQVIg RVBJVEhFTElVTSBccGFyXH BhclxwbGFpblxmMVxmczIy QWyydmoxZYAlDJcaY3dbIk HxGZFuyUbqUMsjw7PnQCZt SRKhJVsltrTjDUUta2rzAF E9xn6priesXN1aKHZGEUVo YWluXGYwXGZzMjBccGFyfX cstqHzIZihb5JzG7BbWiHf MFxhbnNpXGRlZmxhbmcxMD PrNCN4buIyBVOpOHvpNQDy RMigPg6usMKplVicZqTgQC Wuw3bfrbVGXBkhCvMfR246 CDSaCPysd5ldm2PvRGYckD Uts2L3ZTEMtdyzvGa0d3gn XaQvGgA8oFTcFRguK2oida GkrXObW5QkjCMliRl7fPjt B44yk5D0XmzlJ3ibIMTnEQ CrM1LyFK3nDQAfDxq5QVR1 UEA7NOSwOVHhD6WgWA3hRE CgqGZeVVs9h1fqoLcfUYFb HQS8n9lfWFwnzmY8SD1ool 6utLk2t2dfncUxDHFjDNFr rBNCAUMoF1DfzKvfAo0lbL r1uLujJsybOQV6Wwu6IA0r ba91ewx4cJiyDWSutyeoTq M7TAgkHEUrvtptLDu4DLve MZBvwML5SFSbrVDnY6OvBS QfDT4dqgv1MNB3ZOunLXDi UfZ0DIIpwNHeKGUsyWxfOO lcb182DTL3KkKgNO8gS1Zc i5V6dA2mbNPiVERkbETuWn YvXZPhsi7mbKVmTZmry6My CBN4ehC3eBLoaDMeBKLhBY 64Rlzyr6DtXjtfOLS1JQTa zjHol1Kvj7loYcVupoQdO3 ytB6EjILLjDAMgPTUnRiPp bwZcu0Cxh8YxcPVsxGt5q5 mxXNLuZNPhdLkdt9qpJJG7 SEJwI3F6qAXel6taDGiaXM WgnQN4ukB5SWRqcRVvX3Av gR9bFOUuCO0fsau7x8tfBD I9ABhvJSIfXjM3ztJ0KAAk yVBdMMAktDexQTxwy154JN G4PnOeIWZrk4ZnE1EjoYuj I64uqLhyV31xDCOsxMlmmP 0oeNpluR8wEiBgUzEdMQgg bFxwbGFpblxmMVxmczIwXG imzkalBJYzXIppJ9pxZaRp XPBqeNgrVZdqv2LjJYKrRJ NmMlxmczIwXHBhciBJIGhh bnVfzZJem58bZWlqmTOcCY JqHKwvBCOcxXhsk8VgV1ng ZF8fW8HzhPVsmmLiazLzBM soICSas6p4dTWibIzsf9Dh wULrLE34dcHyYWFpZSB9IE Kez8yiMN50egukTjHnpQ64 cuIwmcFoNTOhj3fcA3iosK Bfd1Lnz7LeonIyORlqn6Ko RZ6zsGShvbeleOQ0ZDCmlS RksuPeicE1aGqgIBFjzU0b pH1ocCgnlJ6qZoJvEyPgXZ zoVZ5wXDQaU9cpkBLfNALj QHAhF8gmCuUcxD1ckJcbOy ocnzS3ZMHgxp80 Clinical Information (test code = [id number]) LGSIL, [place] Gross Description (test code = [id number]) t3tceNVhZLQtcOUiEfNjDP MnDPIvg3tzRGTepQMmZtDn MzNcZnRuYmpcdWMxXGRlZm Ktp7rbf604cFSrv3ugAEJl BrJ8uVUyVMZzuQFyC329VI PtCXemy0hvj8IvYFCljMDo u4J4TJNCoacjjOd5kReeP7 3ak6Q8OnuqX1hlLPYbEUSc R3AaFY9mEMXjKap7OMV6YL M9QEUzQETdS8SxDO9vTWUo zTVmKZj7d6jlpNzoHBOuTE Y9o8tzWCiimiZvWZ8pwf2m vOq1f8adncLqQJKyOOGatS CGYPKlN4IeeYjsJk1tfFe5 fWdnFlzbONM5Oqj9KK6bkp 39wpa2mIkhFYYurbpzHuZ0 UWxyJRXrocxoVBv4TFqmXF IxwAFzXAPicVKmH3UhLOhj TJ6bpos0UwVnVO1jtymmPU ukYTMpKCW6FzTbJQUad8Hz emvrRqPpun8qqp91SLM1e9 KggFksUZT5YRO9WrRdOe7w tWPlOUYdCP9iPzKtdSWaKN Pqpu09dUalUWdubuIrbB1l FpFjFIMvyVWzOUXmQY4flE UgKQLvnH6klgbeOHBqAiSc cfcmQWLvlBvqevJwDp3snT fyUAN2WOghF5jivS9gSzD1 ZKltV7vcbZ7yINk6NPkbgY I0KQCspC0rHG5ilhmlv7lv BUI2MNwzEKZwvuN0ttUgUR TgdSWdP6DkuP07BjIvbLFu U0VtuN4zHRyfHZNdxzx1Td TdRk8abNRuxAH4XIlhZupj YWdlXHBnbmNvbnRccGduZG VjXHBsYWluXHBsYWluXGYw KDQiSuQxtLaspDdakF3aKe EgFmIaDKsgEE1dHCBeY0th gAWeAWOfHNCmI9jxJfOjeM 9jaFxmMVxmczIwIFNwZWNp dZNnPBJpfZTfgpIqRWg1MB DazA9xFr0qxEDxpU7peSAh TKkeCFZ8fPKzVVPmECMoHM AjFP58O5PyokXdOVxyOHgw efLaKwBeLFRnW5Vjqkd1RJ OhWpmyAWUnFD1dYBJegxIi o1OvFF6xENSuy2slV0yrDJ Fknm7djn84alMikqVwzKUx lTSqYkBwx0J1ALXty3P1XW EnVM06ZPpqDT94IJnpBX1o GXZsLW4dIFtqJSLlKKRsoN VuIGlzIGZpbHRlcmVkIGlu JFHoLcirhUZ0JILyEeWckm Zvl6AsjQt2iWZuDDnbBCEx rX2hlX7zBFGkHSLayjozME AzX9BmU3pmKO3uZoGosuHo PBBuuIWyEKAtzcJlf9OzHZ xpbiBsYWJlbGVkIHdpdGgg yJG2rYIlpVSuAE5eOUBQTH BjdJ2dCCRbNHObnvLdR6Ol cjmmKOacWMUENgOgDE4wUM RrazVwx8TcPF6qHG21zLLm nCruTLPjej0tfa52vjOfkc QbbKSwmGUly0Wtq40kkRA9 dXYvgIQyNJSaWxB1DXEyEv D5CYEpRZUqzQEmucNsB0jr WBchbRLcHTBezXd8FHNix1 f9fWAsfGAnqGGhhRW8NBLg DIxyMNUzEIWlxSWfsR5fkg JbfbAqsKc3JQUfOLLvisSh TJTok6FsiYFvMJayBS6gAV D3Xk8llRKhIFBlqfB4y8Si IGluIEIxLlxwYXJccGFyXH AgtkRtbTjkcY7uDkLsKgWq NFxwbGFpblxmMVxmczIwXG vmrmyaJYZnFXnnB0qdIpDm WJAtlLtvNNfzv1NcKBVpAN OxPrDhRn1uHZ8sQHWngLWy ZIOWXUU6cQEsfqXrzNDpWC a2mPcyFN1jKHmyHB0roSra PXMqNEKET7CgPRExqg2= Embedded Images (test code = [id number]) [facility] [id number] 17:45:00* Test Item Value Reference Range Interpretation Comme nts Case Report (test code = [id number]) Surgical Pathology ?Case: [id number] ? Authorizing Provider: ?Stefano Kinsey MD ? ? ? Collected: ? 01/30/2020 1102 ?Ordering Location: ? ? [facility] ?Received: ?01/30/2020 1351 ? [facility] ?Pathologist: ? Emerson, Radha Nelson, ? MD ? Specimens: ? A) - CERVIX, 12 o'clock ? B) - ENDOCERVICAL, ECC ? Final Diagnosis (test code = [id number]) [id number] FuZzEwMzNcZnRuYmpcdWMx HDuhqpSjVJckp9SlU7KyXp AwMFxhbnNpXGRlZmxhbmcx VGZlKHL0xoSoFQEpUQbkZH CbOGzdAm7jnLAuvWqbNvTf WYRnx7hgugUGidfbkRf0a0 pqVVHaTnP3iUCxWXrkL7kd xhQguLIhIFDzVKy4cZ78NE MhrL1nfXZzCZrweyPqQFcm pjQtyjHeEfs3NRRuG6bkIK FkYUNpW7NeRV2oGWZjDlc7 YJR7ISU0yRirh9Z5iGBhiX HbuZfaOtUaObVxIQNTa7Dc HJc7pAbfA8ScEQUmRtW6pY QgUGFyYWdyYXBoIEZvbnQ7 dB39EMajibF7uUErh8Yxt4 6qf269tQ8rqRPrVRU5GWWf RSMymTTdLKNeYDE7RCTgqZ SyQ4tmSQgwBN3atjznUZG3 MFxtYXJndDcyMFxtYXJnYj KgwAYtXEVamLgjWOrjo096 UHK7YiVlUF6kU4Vwf0L8dO 9maXRcZGVmdGFiNzIwXGZv kx2ieMViFStjn8OiWAW2mi H9jFCgzZQpPGSyBY08Jppi u1QfUkkmANI1JCBuseTur7 IbEHI7cp8nhEBbbAieleAk wPXwMRvoF6CaIRUmg519GQ 8ncDGnkJ2aAPQdO8GtGVVm f6T2mmJhMwYvVPQslPC1gj U4WOHqUFy1wQDcnzK3ghAw oLBoR4kgwM4rCRkfHK4zjm gcq9uzUJY2PEwpADGcuJS3 uyuoNYnzAFTkNlH7gyGpvR VvYOMyjSjzODqcp689ODY3 HoAbIRJro3WsF7WpiMtaW3 6zhLuyM42dMHQopJkeoZ6q lGgqrH5sSaOjYiWsTLmuuI xwbGFpblxmMFxmczIwXHBs YWluXGYwXGZzMjBccGFyXH TtwzIqnNoefA4pJnOpRuNc MFxwbGFpblxmMFxmczIwIE EuIENFUlZJWCwgMTIgTydD MS6CCqceQilEXOQQYopcBI CsDINvSV9eBk2KGXdgNO6F VYrHPNZYDFNPVPKCW7YSUR lOVFJBRVBJVEhFTElBTCBM VSMHZ07oTLJMFySWGDAOBB PORWvRNJEIUZQLATnWOF8I QVZJUlVTIFxwYXJccWxccG mdzV6nXcGwTjHmIWsioDSs blxmMFxmczIwICAgICAgIC FWG6AII8gJVPOMIUXBAY0U RVMgXHBhciAgICAgLSBccG diuQ6qJaGoVgZqBGSCUsFI M3EIXy1RPSoKFaCmT58GFG ZAY6PJFItqaJEejbcfLIle czIwXHBhclxwYXJccGFyZF xwbGFpblxmMFxmczIwXHBs INcqXJZdGVIoOqBdVd2fXD 5CQ5UKPkCXANwuX5IJFDCR QUdFOlxwYXJccWxccGxhaW 5cZjBcZnMyMFxwbGFpblxm MFxmczIwICAgICAtIFxwbG FpblxmMVxmczIwIEhVTUFO KKGHNEbIOC1XAUCWSsTGYF TKN89LHJZDDAFjF3dDJfxZ A1ampZQyxxlvOPnrptDvPS BhciAgICAgLSBTVFJJUFMg F8CsAwXTMTmFDYPJHH7VJI JWSUNBTCBHTEFORFVMQVIg RVBJVEhFTElVTSBccGFyXH BhclxwbGFpblxmMVxmczIy ZLdqkydmVKKoCIdoT3pkAl RqSYHuxJthJBqul3WyNDQj UMNiHJeaayJgDOIww8vbHW V5tf4dsdluOA7rCXHIXCLc YWluXGYwXGZzMjBccGFyfX ksrlBbSGvkp6YtR5JhWxVn MFxhbnNpXGRlZmxhbmcxMD PrVOO7nvFsAOCrIEopGFGy GMmbQb5acHVlbRetGrYfYY Vbz9ppimEWMExkZnVuT644 PTJcKOcom1zmo3AcXQKpfM Php1Z3CKMOxhkukUg9p1ma JeFxUuP6nLHeGLpfI1zmsg CkwJKrU5QuhYNhpVw7dQnt A26vo2F4JsylF6cjVOExIN QiX7BzPS5oOAOsAvq6DPF1 CTV7JXEiJLWtQ9XqDR7xQI IelBSeKHo5w7pwhJzyUJHb UQP3v2vcNWhpeeM2DI1vmj 2cpOd0b2pxkbWxSHXpPIFa pQXMYPUrT8PlwBglMh8nvK g4kCudCsnuIFT2Ava6GH0p pm82cll0iPjtJKTelcgrZa J5DYanAZIekzfsKPx9MQnz TASfvAY0SFWgcTDjH4LzCK ToTC2bqpq6CTK1SNcvMVOi VkD8LYOjtWObOKRkrUcaUF erf384ZKK8AfTlDL0oY5Rn v1E4mK6kvKBwBASjcULeTw LyHBTegb3obCIdVQxqp9Ui NHY4pjC7cJAtmYNwXQEzGG 05Ifpus6KnFdmxLHD7DLEv ecUuy9Aek7myBkEhbcXwI8 xuH9DxCOSqLBSgQLFjXjEh hfObs2Zsv4CbxGLirWk0l2 hwYCOqEXWrxTwkh2rjSCT7 MUNxL1Z8kTFbf8trPMwgLE UldPL6laY2PSNiySLhQ4Te kV3fMBIoEM2shbi6u5wnGQ W2EHmiSXJuNdJ9kkT2NAEu gLHxYCIafQhpIBmim807XP Y9GwZiBEMlo0MnQ6ByhGgd F35gzOamM47qEVXxpNlykK 9xpGiwyX8jLzPgJeXaFXsa bFxwbGFpblxmMVxmczIwXG dnvemiURDcWKugT8bgCbGo QIGvpCchBIuyy0SkTNBdYR NmMlxmczIwXHBhciBJIGhh tsQxxOZem04tXJtwfGNjKM AlYPqjVNYhlKddp2FtJ7pd MF9nE3PbkFClopYkqjDaKL fqCPBsb6g6jRYjfSkwj9Dc iKElAF01xqYnLNIcGGT9CX Usl4izLE72gacnRhVbxI45 dfHqyvXbFTCqx4qtG4rwrF Oao7Ovq8UmvjXaCIzsq8An FS1uySIrvsjbfPG4XZVifE KpfwVqgkQ0cEweLXHekY5k eV0ebTxbmM2sJkBsZwFkSE iiLN2cAKVjK5ppqUFzSPSi EYIzK4ajBqYkgV4lsFreLi mtlxW0EUFrjx73 Clinical Information (test code = [id number]) LGSIL, [place] Gross Description (test code = [id number]) y2nsrIVzFWWzdCSwShNmLD BtEAAsd9pdFZGciHTjCsQn MzNcZnRuYmpcdWMxXGRlZm Shw1puu718gIRre5mmCHAe IaR4cKWmMBKeiCPaQ894KN GlWZpbh4arb1EtPZSbwQNa q8C4WBXUnizgxZe7fVrvH9 3qk5G0XclkP1keKXMdFQEb I2PtYQ1tNYLgAze0RUJ0IY Z4SNMcAMHbC3KcNI0bAHTt tCGoJLh9a8trdQljGPKgLM S2p8skWYkmanIbEY5tgg1d rTm8g5mtovDdKLRmOPOfiA NIOSTaL3PqrWijKg9csNo2 zOrjUslkPFJ6Fkg9JA4xmo 14pju4gDvzVBPfrnnnNgY8 MEpiQSNkdadhAQg5JDqlHX QseRQgLFYrtBKhE6ZvFUua AH4iqxo1EsTqLM8ftvpwKB xqVLDeTUA1SfCdMHMzq8Jp kjloGyMnef7hyl11AXZ4m1 WujHpoGHY9RWB1BcLqIt4c uUAsXQQzTJ6mEhNehSLdKU Fzvo14nKxcBEfdshIbqA7k LzLyRVWhjEXvIENaEL3tiT UmPSFsxP1rdxtrZFFtRxMl kikmOURbiKeqnoIaUp2nyO ddGTU3IUcaD7igjD5eEpW8 XWzjT5gpoB3mMRi5ZKaguI F9BAHzlA2qIG4jknpct3pq ISO5VKjrBPKhgzE7dcVzJX SgiIXkC6VrvZ94QpPsyRTw H3CxvV5mCLseHFLlxms5Nt SzPp8awCIfmPJ6BQqyLxtb YWdlXHBnbmNvbnRccGduZG VjXHBsYWluXHBsYWluXGYw ALTtEsJybRonwCiwoX1wEg KrYnVzVNovDZ1sIAOfM2jf bTQiTEIwJYOwE5dxAkEoeU 9jaFxmMVxmczIwIFNwZWNp tMAmDZPrsXZgjaEcJXj4KB WuuJ6qHz9epFGyuF9ooZTr TThtOJP7oRHtCGHnVVVtYA RfBT37P4UhqhZtFPzyJOol hyIsYgEvXAWcK0Sbrus9AG DdPekqLGIcYH1wNFOowbYz g0MgYY2dZGTlv7oiM5ezZE Gakh0ird30lgSfkgFwxKWd pFBnJsFgi5Y9QJFhb5M0XK PbHB01WVmsBM87HBdzHF8n OEFySW2mKAuhQMJmRTRioV VuIGlzIGZpbHRlcmVkIGlu DJEmWgqrnBQ0FUKkZaLyrh Fgq6WmjKa9dGHsDPaeCOYh pD5hgW5oFXQkAFYahanwTP WdW8WpX1ykRO7hPvGanqZz QRKddCKyLLWmsxSpd5BzEJ xpbiBsYWJlbGVkIHdpdGgg bCS6rCMisAUwCT0rIGGZCV YppC7sQOTvOSHprbKgF7Ox kgceKOcnDAVMNvLaDQ6hSQ DmgsRuv9UpGN3hWP58lIGj tQwvIGNlkd8vmz46nhUsqj GaaJSawNSom1Znr02ivTU6 aWXfcVXlEVCsQsU4KRBaGw H3PPRiVBOrnJAtsiHdD0od BQbhmNFrKTLsbEi7PMKpx3 f5zXQubPDbkHOazYR8MTOb UYpyBJCrFYNsxBInqQ5lel KqmwWfiEa3AMBzHRRdtzZk IBSyy4TfqFVdQWcdOV4xLT F1Ff8lyNMyHCBagsX4w9Ct IGluIEIxLlxwYXJccGFyXH IbzrJbyDvvgK6iOgBjLeCb NFxwbGFpblxmMVxmczIwXG enonhmNRKfRFyzM3aaXfJq OCGtjWwwXIhau6WxUBOsBB KsOaSiFr1fFS4gRMOmqNZv VPXQEVQ9eXJmbjRvwXGsKR r0rBvrZJ8hNOjdFY0dmNvu OPOsZAWOQ0WmPEWotf9= Embedded Images (test code = [id number]) [facility] [id number] 15:21:00* Test Item Value Reference Range Interpretation Comme nts POCT PREG (test code = 1605) Negative On board controls acceptable with C Line (test code = 3574) Yes POCT PREG LOT # (test code = 3575) POCT PREG TEST DATE ( test code = 3576) Lab Interpretation (test cod e = 99307-1) [id number]* Test Item Value Reference Range Interpretation Comme nts POCT PREG (test code = 1605) Negative On board controls acceptable with C Line (test code = 3574) Yes POCT PREG LOT # (test code = 3575) POCT PREG TEST DATE ( test code = 3576) Lab Interpretation (test cod e = 65131-9) [facility] [id number] 13:31:00* Test Item Value Reference Range Interpretation Comme nts POCT PREG (test code = 1605) Negative On board controls acceptable with C Line (test code = 3574) Yes POCT PREG LOT # (test code = 3575) POCT PREG TEST DATE ( test code = 3576) [facility] [id number] 13:31:00* Test Item Value Reference Range Interpretation Comme nts POCT PREG (test code = 1605) Negative On board controls acceptable with C Line (test code = 3574) Yes POCT PREG LOT # (test code = 3575) POCT PREG TEST DATE ( test code = 3576) [facility]
[2023-07-11] MEDS ORDERED: ONDANSETRON 4 MG/2 ML VIAL ONE (03:28)
[2023-07-11] MEDS ORDERED: KETOROLAC 30 MG/ML INJ ONE (03:28)
[2023-07-11] MEDS ORDERED: NA CHLORIDE 0.9% 1,000 ML ONE (03:28)
[2023-07-11 03:32] LABS: Absolute Basophils 0.1 K/uL (0-0.5); Absolute Eosinophils 0.2 K/uL (0-0.5); Absolute Lymphocytes (CBC) 2.8 K/uL (0.7-4.9); Absolute Monocytes 0.4 K/uL (0.1-1.3); Absolute Neutrophil 6.7 K/uL (1.8-8.0); Basophils % 0.8 % (0-1.3); Eosinophils % 1.5 % (0-4.4); Hematocrit 39.9 % (36.0-45.0); Hemoglobin 13.3 g/dL (12.0-15.0); Lymphocytes % 27.6 % (15.3-44.8); MCH 29.9 pg (27.0-35.0); MCHC 33.4 g/dL (32.0-36.0); MCV 89.6 fL (80-100); MPV 10.4 fL (7.6-11.3); Monocytes % 4.3 % (3.3-12.3); Neutrophils % 65.8 % (41.7-73.7); Nucleated Red Blood Cells % 0.1 % (0-0); Platelets 181 thou/uL (152-406); RBC Red Blood Cell Count 4.45 M/uL (3.86-4.86); Red Cell Distribution Width 12.4 % (12.1-15.2)
[2023-07-11 03:47] LABS: Specific Gravity 1.021 (1.005-1.030)
[2023-07-11 03:49] LABS: Specific Gravity 1.021 (1.005-1.030); Sqamous Epithelial <5 /HPF (None Seen); Urine Bacteria None Seen /HPF (<20); Urine Bilirubin NEGATIVE (Negative); Urine Blood Negative (Negative); Urine Clarity Turbid (Clear); Urine Color Light-Yellow (Yellow); Urine Culture Reflex Order NOT NEEDED; Urine Glucose NEGATIVE (Negative); Urine Ketones NEGATIVE (Negative); Urine Microscopic Reflex YN ORDER UMIC; Urine Mucus Slight /HPF (None Seen); Urine Nitrite NEGATIVE (Negative); Urine Protein NEGATIVE (Negative); Urine RBC <5 /HPF (None Seen); Urine Urobilinogen Normal (Normal); Urine WBC <5 /HPF (<5); Urine pH 5.5 (5.0-7.0)
[2023-07-11 03:51] LABS: Albumin 3.9 g/dL (3.4-5.0); Albumin/Globulin Ratio 1.2 (1.1-1.8); Bilirubin Total 0.4 mg/dL (0.2-1.0); Globulin 3.3 g/dL (2.3-3.5); Protein, Total 7.2 g/dL (6.4-8.2)
--- NOTE | 2023-07-11 05:12 | EDPHYS ---
Physician Documentation [facility] Name: Teresa Sierra Age: 38 yrs Sex: Female : 1985 Arrival Date: 07/11/2023 Time: 03:01 Bed 17 Private MD: KHOA Physician Elías Coleman HPI: 07/10 03:20 This 38 yrs old Female presents to ER via Ambulatory with complaints of cp Abdominal Pain. 03:20 The patient presents with abdominal pain in the lower abdomen. Onset: The cp symptoms/episode began/occurred 2 day(s) ago. 03:20 The symptoms do not radiate. cp 03:20 Associated signs and symptoms: Pertinent positives: constipation, Pertinent negatives: cp blood in stools, chest pain, diarrhea, dysuria, fever, hematuria, shortness of breath, vomiting. The symptoms are described as waxing/waning. 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 - Infectious Disease History:: Denies. - Social history:: Smoking status: Patient denies any tobacco usage or history of. Patient uses alcohol, only on a social basis. ROS: 03:25 Constitutional: Negative for body aches, chills, fever, poor PO intake, cp 03:25 Eyes: Negative for injury, pain, redness, and discharge, cp 03:25 ENT: Negative for drainage from ear(s), ear pain, sore throat, difficulty swallowing, difficulty handling secretions, 03:25 Cardiovascular: Positive for chest pain, palpitations, 03:25 Respiratory: Negative for cough, shortness of breath, wheezing, 03:25 Abdomen/GI: Positive for abdominal pain, Negative for vomiting, diarrhea, constipation, black/tarry stool, flatulence, 03:25 Back: Negative for radiated pain, 03:25 Neuro: Negative for altered mental status, dizziness, headache, weakness, 03:25 All other systems are negative, Exam: 03:35 Constitutional: The patient appears in no acute distress, alert, awake, non-toxic, well cp developed, well nourished, 03:35 Head/Face: Normocephalic, atraumatic. 03:35 Eyes: Periorbital structures: appear normal, Conjunctiva: normal, no exudate, no injection, Sclera: no appreciated abnormality, Lids and lashes: appear normal, bilaterally, 03:35 ENT: External ear(s): are unremarkable, Nose: is normal, Mouth: Lips: moist, Oral mucosa: pink and intact, moist, Posterior pharynx: Airway: no evidence of obstruction, patent, 03:35 Chest/axilla: Inspection: normal, 03:35 Cardiovascular: Rate: normal, Rhythm: regular, 03:35 Respiratory: the patient does not display signs of respiratory distress, Respirations: normal, no use of accessory muscles, no retractions, labored breathing, is not present, Breath sounds: are clear throughout, no decreased breath sounds, no stridor, no wheezing, 03:35 Abdomen/GI: Inspection: abdomen appears normal, Bowel sounds: active, all quadrants, Palpation: soft, in all quadrants, mild abdominal tenderness, in the right lower quadrant and left lower quadrant, rebound tenderness, is not appreciated, involuntary guarding, is not appreciated, 03:35 Back: pain, is absent, ROM is normal, Vital Signs: 03:17 BP 122 / 69; Pulse 65; Resp 16; Temp 97.5(O); Pulse Ox 99% on R/A; Weight 67.59 kg (R); jb4 Height 5 ft. 2 in. ; Pain 6/10; 03:17 Body Mass Index 27.25 (67.59 kg, 157.48 cm) [facility] 03:17 Pain Scale: Adult jb4 MDM: 03:08 Patient medically screened. 22:58 Data reviewed: vital signs, nurses notes, lab test result(s), radiologic studies, CT cp scan. 22:58 I considered the following discharge prescriptions or medication management in the emergency department Medications were administered in the Emergency Department. See MAR. Counseling: I had a detailed discussion with the patient and/or guardian regarding the historical points, exam findings, and any diagnostic results supporting the discharge/admit diagnosis, lab results, radiology results, to return to the emergency department if symptoms worsen or persist or if there are any questions or concerns that arise at home. Response to treatment: the patient's symptoms have mildly improved after treatment. Special discussion: Based on the patient's Hx, exam, and Dx evaluation, there is no indication for emergent surgery or inpatient Tx. It is understood by the patient/guardian that if the Sx's persist or worsen they need to return immediately for re-evaluation. 07/10 03:15 Order name: CBC with Diff; Complete Time: 03:53 cp 07/10 03:15 Order name: CMP; Complete Time: 03:53 cp 07/10 03:15 Order name: Lipase; Complete Time: 03:53 cp 07/10 03:15 Order name: Test, Urine; Complete Time: 03:53 cp 07/10 03:15 Order name: Urinalysis w/ reflexes; Complete Time: 03:53 cp 07/10 03:53 Order name: CT Abd/Pelvis - IV Contrast Only cp 07/10 03:15 Order name: IV Saline Lock; Complete Time: 03:54 cp 07/10 03:15 Order name: Labs collected and sent; Complete Time: 03:54 cp Administered Medications: 03:30 Drug: NS 0.9% IV 1000 ml IV at 1 bolus Per protocol; 1000 mL bolus Route: IV; Rate: 1 jw7 bolus; Site: right antecubital; 03:30 Drug: TORadol - Ketorolac IVP 15 mg IVP once Route: IVP; Site: right antecubital; jw7 03:30 Drug: Ondansetron IVP 4 mg IVP once; over 2 minutes Route: IVP; Site: right antecubital;jw7 Disposition Summary: 07/11/23 05:11 Discharge Ordered Notes: Location: Home cp Problem: new cp Symptoms: have improved cp Condition: Stable cp Diagnosis - Lower abdominal pain, unspecified cp - Constipation, unspecified cp Followup: cp - With: Private Physician - When: 2 - 3 days - Reason: Worsening of condition Discharge Instructions: - Discharge Summary Sheet cp - Abdominal Pain, Adult cp - Constipation, Adult cp Forms: - Medication Reconciliation Form cp - Antibiotic Education cp - Prescription Opioid Use cp - Patient Portal Instructions cp - Leadership Thank You Letter cp Prescriptions: - Miralax 17 gram Oral powder in packet - take 1 packet ORAL route 2 times per day As needed; 30 packet; Refills: 0, cp Product Selection Permitted Addendum: 07/13/2023 22:05 Co-signature as Attending Physician, Elías Coleman MD I agree with the assessment and c lopes plan of care. Signatures: Dispatcher [employer] EDMS Elías Coleman MD MD cha Page, Corey, PA PA Percy Mejia, RN RN jb4 Esperanza Lama, RN RN jw7 Corrections: (The following items were deleted from the chart) 07/10 03:16 03:16 CBC+H.LAB.BRZ ordered. EDMS EDMS 03:16 03:16 COMPREHENSIVE METABOLIC PANEL+C.LAB.BRZ ordered. EDMS EDMS 03:16 03:16 LIPASE+C.LAB.BRZ ordered. EDMS EDMS 03:16 03:16 Test, Urine+UC.LAB.BRZ ordered. EDMS EDMS 03:16 03:16 Urinalysis+U.LAB.BRZ ordered. EDMS EDMS
--- NOTE | 2023-07-11 05:12 | ER ---
Nurse's Notes [facility] Name: Teresa Sierra Age: 38 yrs Sex: Female : 1985 Arrival Date: 07/11/2023 Time: 03:01 Bed 17 Private MD: Diagnosis: Lower abdominal pain, unspecified;Constipation, unspecified Presentation: 07/10 03:17 Chief complaint: Patient states: I have been having lower abdominal pain for the past 2 jb4 days, around 6-7 pm it got worse. I have not had any nausea or vomiting or diarrhea. I took 750mg of Naproxen and it helped the pain. Coronavirus screen: At this time, the client does not indicate any symptoms associated with coronavirus-19. Ebola Screen: No symptoms or risks identified at this time. Initial Sepsis Screen: Does the patient meet any 2 criteria? No. Patient's initial sepsis screen is negative. Does the patient have a suspected source of infection? No. Patient's initial sepsis screen is negative. Risk Assessment: Do you want to hurt yourself or someone else? Patient reports no desire to harm self or others. Onset of symptoms was July 11, 2023. Transition of care: patient was not received from another setting of care. 03:17 Method Of Arrival: Ambulatory jb4 03:17 Acuity: ANDREA 3 jb4 E [employer]: 03:21 LMP 07/03/2023, unknown jb4 Historical: - Allergies: 03:21 No Known Allergies; jb4 - PMHx: 03:21 None; jb4 - PSHx: 03:21 None; jb4 - Immunization history:: Adult Immunizations up to date. - Infectious Disease History:: Denies. - Social history:: Smoking status: Patient denies any tobacco usage or history of. Patient uses alcohol, only on a social basis. Screenin:25 [facility] ED Fall Risk Assessment (Adult) History of falling in the last 3 months, jw7 including since admission No falls in past 3 months (0 pts) Confusion or Disorientation No (0 pts) Intoxicated or Sedated No (0 pts) Impaired Gait No (0 pts) Mobility Assist Device Used No (0 pt) Altered Elimination No (0 pt) Score/Fall Risk Level 0 - 2 = Low Risk Oriented to surroundings, Maintained a safe environment, Educated pt \T\ family on fall prevention, incl call for assistance when getting out of bed. Abuse screen: Denies threats or abuse. Denies injuries from another. Nutritional screening: No deficits noted. Tuberculosis screening: No symptoms or risk factors identified. Assessment: 03:25 General: Appears in no apparent distress. comfortable, Behavior is calm, cooperative. jw7 03:25 Pain: Complains of pain in right lower quadrant Pain does not radiate. Pain currently jw7 is 6 out of 10 on a pain scale. Quality of pain is described as pressure, Pain began 2-3 days ago. Is intermittent, Alleviated by medications. Neuro: Level of Consciousness is awake, alert, obeys commands, Oriented to person, place, time, situation, Appropriate for age. Cardiovascular: Heart tones S1 S2 present Capillary refill < 3 seconds Clubbing of nail beds is absent JVD is absent Patient's skin is warm and dry. Respiratory: Airway is patent Trachea midline Respiratory effort is even, unlabored, Respiratory pattern is regular, symmetrical, Breath sounds are clear bilaterally. GI: Abdomen is flat, non-distended, Bowel sounds present X 4 quads. Abd is soft X 4 quads Abdomen is tender to palpation in right lower quadrant. : No deficits noted. No signs and/or symptoms were reported regarding the genitourinary system. EENT: No deficits noted. No signs and/or symptoms were reported regarding the EENT system. Derm: Skin is intact, is healthy with good turgor, Skin is dry, Skin is normal, Skin temperature is warm. Musculoskeletal: Circulation, motion, and sensation intact. Range of motion: intact in all extremities. 05:21 Reassessment: Patient appears in no apparent distress at this time. Patient and/or jb4 family updated on plan of care and expected duration. Pain level reassessed. Patient is alert, oriented x 3, equal unlabored respirations, skin warm/dry/pink. Vital Signs: 03:17 BP 122 / 69; Pulse 65; Resp 16; Temp 97.5(O); Pulse Ox 99% on R/A; Weight 67.59 kg (R); jb4 Height 5 ft. 2 in. ; Pain 6/10; 03:17 Body Mass Index 27.25 (67.59 kg, 157.48 cm) [facility] 03:17 Pain Scale: Adult [facility] ED Course: 03:05 Patient arrived in ED. gm2 03:06 Elías Grewal PA is PHCP. cp 03:06 Elías Coleman MD is Attending Physician. cp 03:07 Esperanza Lama, RN is Primary Nurse. jw7 03:21 Triage completed. jb4 03:21 Arm band placed on right wrist. jb4 03:25 Patient has correct armband on for positive identification. Placed in gown. Bed in low jw7 position. Call light in reach. Provided Education on: Use of Call Light. 04:05 No provider procedures requiring assistance completed. jw7 04:28 CT Abd/Pelvis - IV Contrast Only In Process Unspecified. EDMS 05:21 IV discontinued, intact, bleeding controlled, No redness/swelling at site. Pressure jb4 dressing applied. Administered Medications: 03:30 Drug: NS 0.9% IV 1000 ml IV at 1 bolus Per protocol; 1000 mL bolus Route: IV; Rate: 1 jw7 bolus; Site: right antecubital; 03:30 Drug: TORadol - Ketorolac IVP 15 mg IVP once Route: IVP; Site: right antecubital; jw7 03:30 Drug: Ondansetron IVP 4 mg IVP once; over 2 minutes Route: IVP; Site: right antecubital;jw7 Medication: 03:25 VIS not applicable for this client. jw7 Outcome: 05:11 Discharge ordered by . cp 05:21 Discharged to home ambulatory, with family, jb4 05:21 Condition: stable 05:21 Discharge instructions given to patient, Instructed on discharge instructions, follow up and referral plans. medication usage, Demonstrated understanding of instructions, follow-up care, medications, Prescriptions given X 1, 05:22 Patient left the ED. jb4 Signatures: Dispatcher [employer] EDMS Elías Grewal PA PA cp Bryson, James, RN RN jb4 Esperanza Lama, ALEX RN emily7 Kanika June gm2
[2023-07-11 05:37] VITALS: BP 122/69; TEMP 97.5; O2SAT 99
--- NOTE | 2023-07-11 18:13 | RAD REPORT ---
EXAM DESCRIPTION: CT - Abdomen Pelvis W Contrast - 07/11/2023 7:27 am CLINICAL HISTORY: Lower abdomen pain COMPARISON: None. TECHNIQUE: CT ABDOMEN PELVIS WITH IV CONTRAST on 07/11/2023 3:53 AM CDT This exam was performed according to our departmental dose-optimization program, which includes autom ated exposure control, adjustment of the mA and/or kV according to patient size and/or use of iterati ve reconstruction technique. FINDINGS: Lower lungs are clear. Abdomen: The liver is normal in appearance. There is no biliary dilatation. Gallbladder is normal in appearance. The pancreas and spleen are normal in appearance. The adrenal glands and kidneys are unre markable. Abdominal aorta is normal in course and caliber without aneurysm. There is no free air. There is no r etroperitoneal adenopathy. Pelvis: There is moderate amount of stool throughout the colon. Urinary bladder is unremarkable. Ther e is trace free pelvic fluid. Uterus is normal in size. Appendix is normal. Skeleton: There are no acute osseous findings. No suspicious bony lesions. IMPRESSION: Constipation. No definite acute process. Electronically signed by: Randy Nicholson MD 07/11/2023 04:50 AM CDT Due to temporary technical issues with the PACS/Fluency reporting system, reports are being signed by the in house radiologists without review as a courtesy to insure prompt reporting. The interpreting radiologist is fully responsible for the content of the report.
== END 2023-07-11 05:22 | disposition home or self-care (01) ==
LOC: ER 03:01
DX: K59.00 Constipation, unspecified (principal)
CPT/HCPCS: 36415; 74177; 80053; 81001; 81025; 83690; 85025; 96374; 96375; 99284; J2405; J7030; Q9967